=== PATIENT | female | born 1985 | race African-American/Black ===

== ENCOUNTER 2017-02-05 09:17 | Emergency (ER) | payer BC ==
[2017-02-05 09:29] VITALS: BP 111/76; PULSE 71; TEMP 99; BMI 25.7
--- NOTE | 2017-02-05 10:02 | PDOC ---
History of Present Illness - General Chief Complaint: Pain Stated Complaint: IUD PLACEMENT? Time Seen by Provider: 02/05/17 09:31 - History of Present Illness Initial Comments: 02/05/17 10:02 Chief complaint: Vaginal pain History of present illness: Patient had IUD inserted yesterday by a hemodialysis patient care specialist in [place]. Today, the patient has a foreign body sensation in the vagina, and she can feel the string of the IUD protruding from the introitus Review of systems: Mild spotting after the procedure. No heavy bleeding. No discharge. No lower abdominal or pelvic pain. No fever. Remainder systems reviewed and found to be negative Past medical history: 2 para 2 C-sections 2.2 live children. No history of STD, ovarian cysts or other AUTOCAD disease. She has had IUDs in the past without any problems. This IUD contains hormones Social/family history reviewed and noncontributory Physical exam: Alert oriented well-developed well-nourished no acute distress cheerful and cooperative Afebrile, vital signs normal Abdomen soft nontender without mass or organomegaly. Denies cramping. Pelvic exam: External genitalia normal. String is protruding from the introitus. Speculum was inserted and IUD was visualized protruding from the cervical os. It was removed and given to the patient. There was no bleeding from the os. The uterus was firm nongravid and nontender. There were no adnexal masses or tenderness. There was no cervical motion tenderness on exam Impression: Expelled IUD Plan: Patient to see TELEPHONE CLAIMS REPRESENTATIVE physician for further discussion of contraception and possible reinsertion of another IUD. Return to the ER if there is fever or chills, vaginal bleeding, or cramping. Fully ambulatory and in no pain or other distress upon discharge to follow-up as directed Past History - Past Medical History Allergies/Adverse Reactions: Allergies Allergy/AdvReac Type Severity Reaction Status Date / Time No Known Allergies Allergy Verified 02/05/17 09:18 Home Medications: Ambulatory Orders Levonorgestrel [Mirena] 1 each IY ONCE 02/05/17 Other medical history: DENIES - Reproductive History Is Patient Now?: No (#): 2 - Suicide/Smoking/Psychosocial Hx Smoking History: Never smoked Have you smoked in the past 12 months: No Information on smoking cessation initiated: No Hx Alcohol Use: No Drug/Substance Use Hx: No Substance Use Type: None *Physical Exam - Vital Signs Last Vital Signs Temp Pulse Resp BP Pulse Ox 99 F 71 20 111/76 100 02/05/17 09:18 02/05/17 09:18 02/05/17 09:18 02/05/17 09:18 02/05/17 09:18 *DC/Admit/Observation/Transfer Diagnosis at time of Disposition: Complication of intrauterine device (IUD) Qualifiers: Mechanical complication type: displacement Encounter type: initial encounter - Discharge Dispostion Disposition: HOME Condition at time of disposition: Improved Admit: No - Patient Instructions Additional Instructions: See your TELEPHONE CLAIMS REPRESENTATIVE doctor as soon as possible to discuss further contraception. Return to ER if there is fever, cramping, significant bleeding, or discharge.
== END 2017-02-05 10:12 | disposition home or self-care (01) ==
LOC: FER 09:17
DX: T85.9XXA Unspecified complication of internal prosthetic device, implant and graft, initial encounter (principal)
CPT/HCPCS: 99282-25

== ENCOUNTER 2024-02-03 04:20 | Emergency (ER) | payer BC, OTHER ==
[2024-02-03 04:29] VITALS: BP 125/83; PULSE 68; RESP 17; TEMP 98.2; BMI 25.7
[2024-02-03 05:20] LABS: BASO % 0.2 % (0-2.0); EOS % 2.5 % (0-4.5); HEMATOCRIT 32.3 % (32.4-45.2); LYMPH % 33.8 % (8-40); MCH 21.9 pg (25.7-33.7); MCHC 30.9 g/dl (32.0-36.0); MEAN CELL VOLUME 70.8 fl (80-96); MEAN PLT VOLUME 7.9 fl (7.5-11.1); MONO % 6.2 % (3.8-10.2); NEUT % 57.3 % (42.8-82.8); PLATELET COUNT 311 10^3/uL (134-434); RBC 4.56 M/mm3 (3.60-5.2); RDW 23.6 % (11.6-15.6)
[2024-02-03 05:37] LABS: POTASSIUM 3.9 mmol/L (3.5-5.1)
[2024-02-03 05:39] LABS: ALBUMIN 3.4 g/dl (3.4-5.0); CALCIUM 8.5 mg/dL (8.5-10.1)
[2024-02-03 05:40] LABS: BLOOD UREA NITROGEN 15.7 mg/dL (7-18)
[2024-02-03 05:43] LABS: CREATININE 0.6 mg/dL (0.55-1.3)
[2024-02-03 05:44] LABS: BILIRUBIN,TOTAL 0.2 mg/dL (0.2-1); TOT PROT 7.2 g/dl (6.4-8.2)
[2024-02-03 05:54] LABS: ANISOCYTOSIS 2+; MACROCYTOSIS 0; OVALOCYTE 1+
== END 2024-02-03 06:35 | disposition home or self-care (01) ==
LOC: FER 04:20
DX: R07.89 Other chest pain (principal); R00.2 Palpitations
CPT/HCPCS: 36415; 80053; 81025; 84443; 84484; 85025; 93005; 99284-25